=== PATIENT | female | born 1985 | race Caucasian/White ===

== ENCOUNTER 2019-04-16 02:30 | Emergency (ER) | payer OTHER ==
[2019-04-16 02:53] VITALS: BP 126/63; PULSE 73; TEMP 98.7; BMI 21.0
--- NOTE | 2019-04-16 03:19 | PDOC ---
Attending Attestation - Resident Resident Name: Daja Jackson - ED Attending Attestation I have performed the following: I have examined & evaluated the patient, The case was reviewed & discussed with the resident, I agree w/resident's findings & plan - HPI HPI: 04/16/19 03:19 see resident hpi - Physicial Exam PE: 04/16/19 03:19 agree with resident exam - Medical Decision Making 04/16/19 03:19 33-year-old female with cough and body aches with home exposure to similar illness and her son Plan for flu swab and DC home with symptomatic care
[2019-04-16] MEDS ORDERED: IBUPROFEN 600 MG TABLET (FP) PO ONE ×2 (03:42→03:43)
--- NOTE | 2019-04-16 03:42 | PDOC ---
History of Present Illness - General Chief Complaint: Sore Throat Stated Complaint: THROAT PAIN Time Seen by Provider: 04/16/19 02:55 History Source: Patient Exam Limitations: No Limitations Past History - Past Medical History Allergies/Adverse Reactions: Allergies Allergy/AdvReac Type Severity Reaction Status Date / Time acetaminophen [From Percocet] Allergy Severe Difficulty Verified 04/16/19 02:51 Breathing oxycodone [From Percocet] Allergy Severe Difficulty Verified 04/16/19 02:51 Breathing Home Medications: Ambulatory Orders levoFLOXacin [Levaquin -] 500 mg PO DAILY 4 Days #4 tablet 04/16/19 Cardiac Disorders: No COPD: No - Psycho Social/Smoking Cessation Hx Smoking History: Smoker current status UNK Have you smoked in the past 12 months: No Information on smoking cessation initiated: No Hx Alcohol Use: No Drug/Substance Use Hx: No *Physical Exam - Vital Signs Last Vital Signs Temp Pulse Resp BP Pulse Ox 98.7 F 73 18 126/63 100 04/16/19 02:47 04/16/19 02:47 04/16/19 02:47 04/16/19 02:47 04/16/19 02:47 ED Treatment Course - RADIOLOGY Radiology Studies Ordered: Category Date Time Status CHEST PA & LAT [RAD] Stat Radiology 04/16/19 03:22 Ordered Discharge - Discharge Information Problems reviewed: Yes Clinical Impression/Diagnosis: Pneumonia Qualifiers: Pneumonia type: due to unspecified organism Laterality: right Lung location: lower lobe of lung Qualified Code(s): J18.9 - Pneumonia, unspecified organism Condition: Good Disposition: HOME - Admission No - Additional Discharge Information Prescriptions: levoFLOXacin [Levaquin -] 500 mg PO DAILY 4 Days #4 tablet - Follow up/Referral Referrals: [facility] [place] [Provider Group] - Patient Discharge Instructions Patient Printed Discharge Instructions: DI for Pneumonia -- Adult Additional Instructions: You were seen in the ER today for cough and fever. The results of your imaging today showed a pneumonia. Please follow-up with your primary care doctor within 1-2 days to discuss your visit and make sure your symptoms have improved. Please return to the ER if you have any worsening pain, development of fevers or chills, loss of consciousness, inability to tolerate food or fluids, or any other concerns. I have sent medications to your pharmacy. Please take these medications as prescribed. You can take tylenol or motrin every 4-6 hours as needed for pain. - Post Discharge Activity
[2019-04-16] MEDS ORDERED: levoFLOXacin 750 MG TABLET PO STA (03:51)
== END 2019-04-16 04:18 | disposition home or self-care (01) ==
LOC: JER 02:30
DX: J18.9 Pneumonia, unspecified organism (principal)
CPT/HCPCS: 71046-TC-FY; 99282-25